=== PATIENT | female | born 1990 ===

== ENCOUNTER 2024-01-14 22:34 | Emergency (ER) | payer MEDICAID, SELFPAY ==
[2024-01-14 22:41] VITALS: BP 107/74; PULSE 89; RESP 20; TEMP 36.8; O2SAT 95; BMI 34.4
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
== END 2024-01-14 23:25 | disposition home or self-care (01) ==
PROVIDERS: Emergency Provider Student in an Organized Health Care Education/Training Program
DX: F41.9 Anxiety disorder, unspecified (principal)
CPT/HCPCS: 99283